=== PATIENT | female | born 1945 | race Caucasian/White ===

== ENCOUNTER 2020-01-24 13:16 | Observation (INO) | payer MEDICARE ==
[~2020-01-24] VITALS: Ht 162.6 cm; Wt 60.0 kg
[2020-01-24 13:47] LABS: BASOPHILS # (AUTO) 0.1 X10'3 (0-0.2); BASOPHILS % (AUTO) 1.2 % (0-1); EOSINOPHILS # (AUTO) 0.2 X10'3 (0-0.9); EOSINOPHILS % (AUTO) 4.1 % (0-6); HEMOGLOBIN 13.9 g/dl (12.0-16.0); LYMPHOCYTES # (AUTO) 1.9 X10'3 (1.1-4.8); LYMPHOCYTES % (AUTO) 31.6 % (21-51); MEAN CORPUSCULAR HEMOGLOBIN 28.6 PG (27.0-31.0); MEAN CORPUSCULAR VOLUME 86.6 FL (78-98); MEAN PLATELET VOLUME 8.2 FL (7.4-10.4); MONOCYTES # (AUTO) 0.6 X10'3 (0-0.9); MONOCYTES % (AUTO) 9.1 % (2-12); NEUTROPHILS # (AUTO) 3.3 X10'3 (1.8-7.7); PLATELET COUNT 302 X10'3 (140-440); RED BLOOD COUNT 4.85 X10'6 (4.20-5.60); RED CELL DISTRIBUTION WIDTH 15.1 % (11.5-14.5); WHITE BLOOD COUNT 6.1 X10'3 (4.5-11.0)
[2020-01-24 13:55] LABS: ALANINE AMINOTRANSFERASE 27 U/L (12-78); ALBUMIN 3.9 G/DL (3.4-5.0); ALBUMIN/GLOBULIN RATIO 1.1 (1.1-1.5); ALKALINE PHOSPHATASE 92 IU/L (46-116); ANION GAP 7 (8-16); ASPARTATE AMINO TRANSFERASE 17 U/L (10-37); BILIRUBIN,TOTAL 0.3 MG/DL (0.1-1.0); BLOOD UREA NITROGEN 14 MG/DL (7-18); BUN/CREATININE RATIO 13.5 (6.6-38.0); CALCIUM 9.5 MG/DL (8.5-10.1); CHLORIDE 105 MMOL/L (99-107); CREATININE 1.04 MG/DL (0.40-0.90); GLUCOSE 142 MG/DL (70-104); SODIUM 141 MMOL/L (135-145); TOTAL CARBON DIOXIDE 29.5 MMOL/L (24-32); TOTAL PROTEIN 7.4 G/DL (6.4-8.2); eGFR 52 ML/MIN
[2020-01-24] MEDS ORDERED: mag hydrox/Alum hydrox/simeth 30ml oral suspension PO PRN (15:10)
[2020-01-24] MEDS ORDERED: ondansetron/PF 4mg/2ml inj IV PRN (15:10)
[2020-01-24] MEDS: normal saline 1000ml 1,000 ML IV SCH (15:10)
[2020-01-24] MEDS ORDERED: acetaminophen 650mg rectal suppository RC PRN (15:10)
[2020-01-24] MEDS ORDERED: HYDROcodone/acetaminophen 5mg/325mg tablet PO PRN (15:10)
[2020-01-24] MEDS ORDERED: acetaminophen 325mg tablet PO PRN ×2 (15:10)
[2020-01-24] MEDS ORDERED: magnesium hydroxide 30ml (MOM) UD suspension PO PRN (15:10)
[2020-01-24] MEDS ORDERED: bisacodyl 10mg suppository rectal RC PRN (15:10)
[2020-01-24] MEDS ORDERED: iohexol 350MG/ML 100ml bottle IV ONE (15:21)
[2020-01-24] MEDS ORDERED: NO HOME MEDS (15:29)
[2020-01-24 17:29] VITALS: BP 152/76
[2020-01-24 17:30] VITALS: BP_SYST 152; BP_SYST 162; BP_SYST 165; BP_DIAS 76; BP_DIAS 90; BP_DIAS 92
--- NOTE | 2020-01-24 18:14 | NUR ---
Problems reprioritized. Patient report given, questions answered & plan of care reviewed with PARAMJIT Worley.
[2020-01-24 19:00] LABS: CLARITY,URINE CLEAR (Clear); COLOR,URINE YELLOW (Yellow); GLUCOSE, URINE NEGATIVE (Neg); KETONES,URINE NEGATIVE (Neg); LEUKOCYTE ESTERASE ,URINE NEGATIVE (Neg); NITRITES, URINE NEGATIVE (Neg); OCCULT BLOOD,URINE TRACE-INTACT (Neg); PH,URINE 6.5 (4.8-8.0); PROTEIN,URINE NEGATIVE (Neg); UROBILINOGEN,URINE 0.2 E.U/dL (0.2-1.0)
[2020-01-24 19:11] LABS: BACTERIA,URINE NONE SEEN /HPF (Neg); RBC,URINE 0-2 /HPF (0-2); SQUAMOUS EPITHELIAL CELL,UR FEW /LPF (FEW); UA COLLECTION TYPE CLN CATCH MIDSTREAM; WBC,URINE NONE SEEN /HPF (0-4)
[2020-01-24 20:00] VITALS: BP_SYST 149; BP_SYST 163; BP_SYST 166; BP_DIAS 78; BP_DIAS 83; BP_DIAS 86
[2020-01-24] MEDS ORDERED: temazepam 15mg capsule PO PRN (21:00)
[2020-01-25] VITALS: BP 149/78
[2020-01-25] MEDS: normal saline 1000ml 1,000 ML IV SCH (01:10)
[2020-01-25 04:00] VITALS: BP 134/66
--- NOTE | 2020-01-25 06:15 | NUR ---
Problems reprioritized. Patient report given, questions answered & plan of care reviewed with PARAMJIT Camacho.
[2020-01-25 06:29] LABS: BASOPHILS # (AUTO) 0.1 X10'3 (0-0.2); BASOPHILS % (AUTO) 1.6 % (0-1); EOSINOPHILS # (AUTO) 0.2 X10'3 (0-0.9); EOSINOPHILS % (AUTO) 5.7 % (0-6); HEMATOCRIT 37.8 % (35.0-45.0); HEMOGLOBIN 12.5 g/dl (12.0-16.0); LYMPHOCYTES # (AUTO) 1.9 X10'3 (1.1-4.8); LYMPHOCYTES % (AUTO) 43.6 % (21-51); MEAN CORPUSCULAR HEMOGLOBIN 29.2 PG (27.0-31.0); MEAN CORPUSCULAR HGB CONC 33.2 g/dL (33.0-36.5); MEAN CORPUSCULAR VOLUME 87.9 FL (78-98); MEAN PLATELET VOLUME 7.8 FL (7.4-10.4); MONOCYTES # (AUTO) 0.4 X10'3 (0-0.9); MONOCYTES % (AUTO) 10.3 % (2-12); NEUTROPHILS # (AUTO) 1.7 X10'3 (1.8-7.7); NEUTROPHILS % (AUTO) 38.8 % (42-75); PLATELET COUNT 256 X10'3 (140-440); RED CELL DISTRIBUTION WIDTH 15.3 % (11.5-14.5); WHITE BLOOD COUNT 4.3 X10'3 (4.5-11.0)
[2020-01-25 06:46] LABS: ALANINE AMINOTRANSFERASE 24 U/L (12-78); ALBUMIN 3.1 G/DL (3.4-5.0); ALBUMIN/GLOBULIN RATIO 1.1 (1.1-1.5); ALKALINE PHOSPHATASE 72 IU/L (46-116); ANION GAP 8 (8-16); ASPARTATE AMINO TRANSFERASE 16 U/L (10-37); BILIRUBIN,TOTAL 0.3 MG/DL (0.1-1.0); BLOOD UREA NITROGEN 7 MG/DL (7-18); BUN/CREATININE RATIO 7.8 (6.6-38.0); CALCIUM 8.9 MG/DL (8.5-10.1); CHLORIDE 111 MMOL/L (99-107); CHOLESTEROL 186 MG/DL (0-200); GLUCOSE 86 MG/DL (70-104); SODIUM 145 MMOL/L (135-145); TOTAL CARBON DIOXIDE 25.7 MMOL/L (24-32); eGFR 61 ML/MIN
[2020-01-25 06:47] LABS: HDL CHOLESTEROL 62 MG/DL (35-60); LDL CHOLESTEROL 106 MG/DL (50-100); TRIGLYCERIDES 91 MG/DL (20-135)
[2020-01-25 07:00] VITALS: BP 126/65
[2020-01-25] MEDS: enoxaparin 40mg/0.4ml syringe SUBCUT SCH ×2 (07:49→07:55)
[2020-01-25 08:12] VITALS: BP_SYST 156; BP_SYST 159; BP_SYST 161; BP_DIAS 79; BP_DIAS 87; BP_DIAS 93
[2020-01-25] MEDS ORDERED: aspirin 81mg tablet.DR PO SCH (08:30)
[2020-01-25 10:00] VITALS: BP 126/65
[2020-01-25] MEDS ORDERED: lisinopril 10 MG tablet PO SCH (12:15)
[2020-01-25] MEDS ORDERED: clopidogrel 75mg tablet PO ONE (13:15)
[2020-01-25] MEDS ORDERED: atorvastatin 20mg tablet PO SCH (13:15)
[2020-01-25] MEDS ORDERED: aspirin 325mg tablet PO ONE (13:15)
[2020-01-25] MEDS ORDERED: LISI10TA4 PO (13:23)
[2020-01-25] MEDS ORDERED: ATOR40TA PO (13:23)
[2020-01-25] MEDS ORDERED: CLOP75TA15 PO (13:23)
[2020-01-25] MEDS ORDERED: ASPI-1071 PO (13:23)
[2020-01-25] MEDS ORDERED: aspirin 81mg tab.chew PO ONE (13:25)
[2020-01-25 14:14] VITALS: BP_SYST 126
--- NOTE | 2020-01-25 15:59 | NUR ---
Patient was discharged IV and tele was removed from patient. Patient left with medications was sent to [facility]. will follow up with her primary
== END 2020-01-25 15:30 | disposition home or self-care (01) ==
LOC: ER 13:17 → ED HOLD 15:10 → INTOOBSV 15:10 → EDBEDREQ 16:14 → ORTHO 4S 16:54
PROVIDERS: ADMIT Family Medicine; ATTEND Family Medicine
DX: G45.9 Transient cerebral ischemic attack, unspecified (principal); R42 Dizziness and giddiness; R55 Syncope and collapse; I10 Essential (primary) hypertension; E78.5 Hyperlipidemia, unspecified; N17.9 Acute kidney failure, unspecified; G47.00 Insomnia, unspecified; Z90.49 Acquired absence of other specified parts of digestive tract; Z79.82 Long term (current) use of aspirin; Z79.899 Other long term (current) drug therapy
CPT/HCPCS: 36415; 70450; 70496; 70498; 70551; 71045; 80053; 80061; 81001; 84443; 84484; 85025; 85651; 87081; 93005; 93306; 95816; 96360; 96361; 97116; 97161; 97530; 99285; G0378; J7030; Q9967; J1650